=== PATIENT | male | born 1985 | race Caucasian/White ===

== ENCOUNTER 2022-09-18 11:47 | Emergency (ER) | payer OTHER, SELFPAY ==
[2022-09-18 11:48] VITALS: BP 139/87; PULSE 89; RESP 16; TEMP 36.5; O2SAT 98; BMI 33.5
--- NOTE | 2022-09-18 11:58 | EX.ED.DYSGE1 ---
HPI History of Present Illness Chief Complaint: Abscess Detail of Chief Complaint: Perianal abscess/cellulitis Informant: patient Onset/Context/Timing Onset: Weeks (1.5) Context: Sudden Onset Timing: Continuous Quality: Pain, swelling and redness Location: Perianal region predominantly right side and perineal region Current Severity: Moderate Maximum Severity: Moderate Worsened by: Nothing Relieved by: Nothing Associated Symptoms Associated Symptoms: Increased thirst Narrative Narrative: Patient is a 37-year-old male who was seen in urgent care and placed on ciprofloxacin metronidazole. He was placed on metronidazole twice a day only. He was not prescribed Augmentin and I presume due to allergy to cefaclor, hives. Patient denies fever, chills night sweats. Patient has history of fever, heart murmur, mitral prolapse or SBE. He is on no immunosuppressive meds. He denies nausea, vomiting. He does have diarrhea. He had a viral bug he states a couple of weeks ago. There is family history of diabetes. Prior similar symptoms: No Recent Illness/Hospitalization: Yes (Placed on antibiotics by urgent care provider.) PFSH PFSH Home Medications clindamycin HCl 300 mg capsule (Cleocin HCl) 300 mg PO Q6H #28 CAPSULES 09/18/22 [Rx Last Taken Unknown] hydrocodone-acetaminophen 5-325mg 5mg-325mg 1 tab PO Q4H PRN PRN Pain 2 days #10 TABLETS 09/18/22 [Rx Last Taken Unknown] Allergy/AdvReac Type Severity Reaction Status Date / Time cefaclor [From [facility]] Allergy Mild Hives Verified 09/18/22 11:50 Surgical History no surgical history no surgical history Social History (Updated 09/18/22 @ 12:[address] Daniel Morales MD) Smoking Status: Never smoker substance use type: does not use ROS ROS ED Constitutional Constitutional ED: Denies chills, fever(s), subjective, sweats or weight loss Eyes Eyes: Denies blurry vision or change in vision Cardiovascular Cardiovascular: Denies chest pain Respiratory/Chest Respiratory/Chest: Denies dyspnea Gastrointestinal Gastrointestinal: Reports diarrhea; Denies nausea or vomiting Genitourinary Genitourinary ED: Reports urinary frequency; Denies dysuria or hematuria Musculoskeletal Musculoskeletal: Denies back pain or neck pain Integumentary Reports abscess and rash Hematologic/Lymphatic Hematologic/Lymphatic: Reports systems reviewed and no addt'l complaints, except as documented EXAM Physical Exam Const Vital Signs: 09/18/22 11:48 Temperature 97.7 F L Temperature Source Temporal Pulse Rate 89 Respiratory Rate 16 Blood Pressure 139/87 H Blood Pressure Mean 104 Pulse Ox 98 Oxygen Delivery Method Room Air Positive well nourished and well developed General Appearance ED: well developed and NAD; Negative for cyanotic, diaphoretic or pallor HEENT Reports moist mucous membranes HEENT Narrative: Head is atraumatic normocephalic. Nares patent. Neck no lymphadenopathy, supple and no JVD Chest Wall inspection of chest normal and palpation of chest normal Resp normal respiratory effort and clear to auscultation bilaterally Cardio regular rate, regular rhythm, S1 normal heart sound, S2 normal heart sound and no murmurs GI GI Narrative: Patient has evidence of a perianal abscess with cellulitis. Rectal exam is nontender. There is no fluctuance. Prostate was normal size and nontender Back/Spine no CVA tenderness Lumbar Spine / Lower Back: Negative for lumbar spinal tenderness Extremity normal to inspection Neuro oriented x3 and CN's II-XII intact bilaterally Sensorium / Orientation: alert Skin no wounds Skin Narrative: Previously described under the GI portion of the EMR General Skin Exam: Negative for jaundice or pallor MDM MDM MDM Narrative Medical decision making narrative: Patient was informed treatment is incision and drainage. We will anesthetized with lidocaine by local infiltration and field block. We will change his antibiotics and specifically discontinue ciprofloxacin and prescribe clindamycin. He also was informed to increase the metronidazole to 3 times a day. Because of his increased urination family history diabetes and BMI greater than 30 we will obtain PGT to assess for hyperglycemia. History & Record Review Additional record(s) reviewed:: Prior ED visit (2012 for headache otherwise there are no records available.) Procedures Other Procedures Procedure(s): Patient was consented for I&D of perianal abscess. Patient was explained risk benefits given opportunity ask questions and none were asked. Patient was prepped draped sterile manner. The area was anesthetized by local infiltration and field block. A 1.5 to 2 cm incision was made using a 10 blade. Initially there was no purulent material. Deja forceps were placed into the wound and there was free flow of thick yellow purulent material. Blunt dissection was undertaken with more purulent material noted. There was approximately 60 cc of purulent material noted. The cavity was irrigated. 1/4 inch iodoform gauze was placed as a wick. Patient tolerated procedure well. Discharge Plan Triage Chief Complaint: Abscess ED Provider: Daniel Morales Dx/Rx/DC Orders Clinical Impression: Perianal abscess, Cellulitis of buttock, right Instructions: Cellulitis Dc, ED ABSCESS Faye-Anal IandD Prescriptions: New clindamycin HCl [Cleocin HCl] 300 mg capsule 300 mg PO Q6H Qty: 28 0RF hydrocodone-acetaminophen [hydrocodone-acetaminophen] 5-325 mg tablet 1 tab PO Q4H PRN PRN (Reason: Pain) 2 Days Qty: 10 0RF Primary Care Provider: [facility] ,Out of Referrals: Preet Julien MD [Med Staff - Active Staff] - 2 Days for wound check [facility] Doctor,Out of [Primary Care Provider] - Activity Restrictions/Additional Instructions: 1. Stop the ciprofloxacin antibiotic 2. Increase metronidazole to 1 tablet 3 times a day 3. Have wick removed in 2 to 3 days. 4. Recommend purchasing feminine liners to prevent your underwear and pants being stained with blood and drainage. 5. If you develop temperature greater than 102, shaking chills or any concerns the wound is getting worse return for reevaluation Disposition Disposition: Home, Self Care
[2022-09-18] MEDS: Lidocaine 1% (20 ml mdv) 20 ML Vial INFILT (12:06)
[2022-09-18 12:41] VITALS: BP 118/79; PULSE 69; RESP 16; O2SAT 99
== END 2022-09-18 12:45 | disposition home or self-care (01) ==
PROVIDERS: Emergency Provider Emergency Medicine; Visit Provider Emergency Medicine
DX: K61.0 Anal abscess (principal); L03.317 Cellulitis of buttock
CPT/HCPCS: 10060; 99282